=== PATIENT | male | born 1960 | race African-American/Black ===

== ENCOUNTER 2016-06-16 10:39 | Emergency (ER) | payer OTHER ==
[2016-06-16 10:46] VITALS: BP 145/91; PULSE 89; TEMP 97.9; BMI 37.7
--- NOTE | 2016-06-16 11:22 | PDOC ---
History of Present Illness - General Chief Complaint: Wound Stated Complaint: PD TUBE PROBLEM Time Seen by Provider: 06/16/16 10:57 History Source: Patient Exam Limitations: No Limitations - History of Present Illness Initial Comments: 06/16/16 11:23 55-year-old male presents to the ED for dressing change to his peritoneal dialysis catheter site. Patient states had his catheter placed about 1 month ago and is in the process of being taught how to use it so that he can do it at home. Patient states currently receives hemodialysis through his left AV fistula which yesterday the dialysis nurse dressed the area but the dressing came loose and he is concerned that it might get pulled out. Patient denies any pain at the site, bleeding, redness, or movement of the tube. Patient states unable to use surgical tape since it irritates his skin. Timing/Duration: other Associated Symptoms: reports: denies symptoms Past History - Past Medical History Allergies/Adverse Reactions: Allergies Allergy/AdvReac Type Severity Reaction Status Date / Time No Known Allergies Allergy Verified 06/16/16 10:47 Home Medications: Ambulatory Orders Atorvastatin Ca [Lipitor] 10 mg PO HS 06/16/16 Carvedilol [Coreg -] 30 mg PO DAILY 06/16/16 Cinacalcet HCl [Sensipar] 30 mg PO DAILY 06/16/16 Furosemide [Lasix -] 40 mg PO DAILY 06/16/16 Hydralazine HCl 75 mg PO TID 06/16/16 Losartan Potassium [Cozaar] 25 mg PO DAILY 06/16/16 Sevelamer Carbonate [Renvela] 800 mg PO AC 06/16/16 Cardiac Disorders: Yes (ANGINA) Dialysis: Yes GI Disorders: Yes (GERD) HTN: Yes Hypercholesterolemia: Yes - Family Disease History Family Disease History: Heart Disease: Father, [place]: Mother - Psycho/Social/Smoking Cessation Hx Anxiety: No Suicidal Ideation: No Smoking Status: No Smoking History: Never smoked Number of Cigarettes Smoked Daily: 0 Information on smoking cessation initiated: No Hx Alcohol Use: No Drug/Substance Use Hx: No Substance Use Type: None Hx Substance Use Treatment: No Patient Lives Alone: Yes Lives with/in: lives alone Review of Systems - Review of Systems Able to Perform ROS?: Yes Constitutional: No: Symptoms Reported Respiratory: No: Symptoms reported ABD/GI: No: Symptoms Reported Integumentary: No: Symptoms Reported *Physical Exam - Vital Signs Last Vital Signs Temp Pulse Resp BP Pulse Ox 97.9 F 89 18 145/91 97 06/16/16 10:40 06/16/16 10:40 06/16/16 10:40 06/16/16 10:40 06/16/16 10:40 - Physical Exam General Appearance: Yes: Nourished, Appropriately Dressed. No: Apparent Distress Gastrointestinal/Abdominal: positive: Soft. negative: Tenderness Integumentary: positive: Normal Color, Warm, Moist, Other (dialysis catheter secured with DRESSING. Distal portion of tube did not secured and tip not covered ) Neurologic: positive: Motor Strength 5/5 (ambulatory) Medical Decision Making - Medical Decision Making 06/16/16 11:35 Patient here requesting patient here requesting an additional dressing to be placed to his peritoneal dialysis catheter. Tip was cleansed with alcohol and covered with a sterile 2 x 2. distal aspect of the catheter tubing secured using Tegaderm. Patient given additional Tegaderm. Patient has dialysis tomorrow to his left AV fistula *DC/Admit/Observation/Transfer Diagnosis at time of Disposition: Dressing change - Discharge Dispostion Disposition: HOME Condition at time of disposition: Good - Patient Instructions Printed Discharge Instructions: Peritoneal Dialysis Additional Instructions: Keep catheter secured and covered as demonstrated and performed in the ER. Observe for infection. You have also been given an additional Tegaderm as needed for dressing changes.
== END 2016-06-16 11:37 | disposition home or self-care (01) ==
LOC: JER 10:39
DX: Z48.01 Encounter for change or removal of surgical wound dressing (principal); I13.11 Hypertensive heart and chronic kidney disease without heart failure, with stage 5 chronic kidney disease, or end stage renal disease; N18.6 End stage renal disease; N17.8 Other acute kidney failure; Z99.2 Dependence on renal dialysis
CPT/HCPCS: 99281-25

== ENCOUNTER 2023-06-26 19:27 | Observation (INO) | payer OTHER ==
[2023-06-26] MEDS ORDERED: MAG HYDROX/AL HYDROX/SIMETH 30 ML UNIT-DOSE CUP ONE (21:23)
[2023-06-26] MEDS ORDERED: ACETAMINOPHEN INJECTION 100 ML IVPB ONE (21:23)
[2023-06-26] MEDS: MAG HYDROX/AL HYDROX/SIMETH 30 ML UNIT-DOSE CUP PO ONE (22:04)
[2023-06-26] MEDS: ACETAMINOPHEN 1000 MG/100 ML BAG IVPB ONE (22:04)
[2023-06-26 23:33] LABS: BASO % 0.5 % (0-2.0); EOS % 2.8 % (0-4.5); HEMATOCRIT 40.8 % (35.4-49); LYMPH % 16.2 % (8-40); MCHC 31.9 g/dl (32.0-35.9); MEAN CELL VOLUME 94.2 fl (80-96); MEAN PLT VOLUME 7.9 fl (7.5-11.1); MONO % 9.8 % (3.8-10.2); NEUT % 70.7 % (42.8-82.8); PLATELET COUNT 236 10^3/uL (134-434); RBC 4.33 M/mm3 (4.00-5.60); RDW 15.4 % (11.9-15.9); WHITE BLOOD COUNT 6.5 K/mm3 (4.0-10.0)
[2023-06-26 23:38] LABS: INR 1.09 (0.83-1.09); PROTHROMBIN TIME (PATIENT) 12.6 SEC (9.7-13.0)
[2023-06-26 23:40] LABS: ACTIVATED PTT 32.6 SECONDS (25.2-36.5)
[2023-06-26 23:50] LABS: POTASSIUM 4.2 mmol/L (3.5-5.1)
[2023-06-26 23:53] LABS: CALCIUM 9.7 mg/dL (8.5-10.1)
[2023-06-26 23:54] LABS: ALBUMIN 4.2 g/dl (3.4-5.0); BLOOD UREA NITROGEN 25.3 mg/dL (7-18); MAGNESIUM 2.5 mg/dL (1.8-2.4)
[2023-06-26 23:57] LABS: CREATININE 6.5 mg/dL (0.55-1.3); TOT PROT 9.9 g/dl (6.4-8.2)
[2023-06-26 23:59] LABS: BILIRUBIN,TOTAL 0.5 mg/dL (0.2-1)
[2023-06-27 00:39] LABS: ERYTHROCYTE SEDIMENTATION RATE 64 mm/hr (0-20)
[2023-06-27] MEDS ORDERED: ACETAMINOPHEN 1000 MG/100 ML BAG IVPB PRN (02:36)
[2023-06-27] MEDS ORDERED: traMADol HCL 50 MG TABLET PO PRN ×2 (02:37→20:27)
[2023-06-27] MEDS ORDERED: ASPIRIN 325 MG TABLET ONE (03:13)
[2023-06-27] MEDS ORDERED: ASPIRIN 81 MG CHEWABLE TABLETS ONE (03:14)
[2023-06-27] MEDS: ASPIRIN 81 MG CHEWABLE TABLETS PO ONE (03:21)
[2023-06-27] MEDS ORDERED: SEVELAMER CARBONATE 800 MG TAB (FP) PO SCH (05:30)
[2023-06-27 08:17] LABS: POTASSIUM 3.6 mmol/L (3.5-5.1)
[2023-06-27 08:20] LABS: ALBUMIN 3.6 g/dl (3.4-5.0); BLOOD UREA NITROGEN 31.6 mg/dL (7-18)
[2023-06-27 08:22] LABS: CALCIUM 8.8 mg/dL (8.5-10.1); PHOSPHOROUS 2.6 mg/dL (2.5-4.9)
[2023-06-27 08:24] LABS: CREATININE 7.2 mg/dL (0.55-1.3)
[2023-06-27 08:25] LABS: BILIRUBIN,TOTAL 0.5 mg/dL (0.2-1); TOT PROT 8.4 g/dl (6.4-8.2)
[2023-06-27 08:38] LABS: BASO % 0.6 % (0-2.0); EOS % 3.1 % (0-4.5); HEMATOCRIT 35.2 % (35.4-49); HEMOGLOBIN 11.5 GM/dL (11.7-16.9); LYMPH % 18.4 % (8-40); MCH 30.6 pg (25.7-33.7); MCHC 32.6 g/dl (32.0-35.9); MEAN CELL VOLUME 93.8 fl (80-96); MEAN PLT VOLUME 7.9 fl (7.5-11.1); MONO % 12.2 % (3.8-10.2); NEUT % 65.7 % (42.8-82.8); PLATELET COUNT 214 10^3/uL (134-434); RBC 3.75 M/mm3 (4.00-5.60); RDW 14.9 % (11.9-15.9); WHITE BLOOD COUNT 6.9 K/mm3 (4.0-10.0)
[2023-06-27] MEDS: TAMSULOSIN HCL 0.4 MG CAP PO SCH (09:00)
[2023-06-27] MEDS: SEVELAMER CARBONATE 800 MG TAB (FP) PO SCH (09:38)
[2023-06-27] MEDS ORDERED: HEPARIN NA (PORCINE) 5,000 UNITS/ML 1ML VIAL SQ SCH (10:00)
[2023-06-27] MEDS ORDERED: ASPIRIN 81 MG CHEWABLE TABLETS PO SCH (10:00)
[2023-06-27] MEDS: CARVEDILOL 25 MG TABLET (FP) PO SCH ×2 (11:00→21:33)
[2023-06-27] MEDS: FINASTERIDE 5 MG TABLET (FP) PO SCH (11:00)
[2023-06-27] MEDS: ACETAMINOPHEN 1000 MG/100 ML BAG IVPB PRN (11:07)
[2023-06-27] MEDS: APIXABAN 2.5 MG TABLET PO SCH ×2 (11:08→21:32)
[2023-06-27] MEDS: FAMOTIDINE 10 MG TABLET PO SCH (11:08)
[2023-06-27] MEDS: BACITRACIN ZINC 15 GM TUBE TOPICAL OINTMENT TP ONE (11:13)
[2023-06-27] MEDS ORDERED: SODIUM CHLORIDE 250 ML IV PRN (13:39)
[2023-06-27] MEDS: CINACALCET HCL 30 MG TAB (FP) PO SCH (18:38)
[2023-06-27] MEDS: ACETAMINOPHEN 325 MG TABLET (FP) PO PRN (21:33)
[2023-06-27] MEDS: ATORVASTATIN CA 40 MG TABLET (FP) PO SCH (21:33)
[2023-06-27] MEDS ORDERED: ATORVASTATIN CA 40 MG TABLET (FP) PO SCH (22:00)
[2023-06-28] MEDS ORDERED: ASPIRIN 81 MG CHEWABLE TABLETS PO SCH (10:00)
[2023-06-28] MEDS: SEVELAMER CARBONATE 800 MG TAB (FP) PO SCH (10:15)
[2023-06-28] MEDS: TAMSULOSIN HCL 0.4 MG CAP PO SCH (10:16)
[2023-06-28] MEDS: CINACALCET HCL 30 MG TAB (FP) PO SCH (10:16)
[2023-06-28] MEDS: ASPIRIN 81 MG CHEWABLE TABLETS PO SCH (10:16)
[2023-06-28] MEDS: FINASTERIDE 5 MG TABLET (FP) PO SCH (10:16)
[2023-06-28 15:40] LABS: POTASSIUM 3.2 mmol/L (3.5-5.1)
[2023-06-28 16:09] LABS: ALBUMIN 3.1 g/dl (3.4-5.0); CALCIUM 8.4 mg/dL (8.5-10.1)
[2023-06-28 16:10] LABS: BLOOD UREA NITROGEN 27.5 mg/dL (7-18)
[2023-06-28 16:14] LABS: CREATININE 5.9 mg/dL (0.55-1.3)
[2023-06-28 16:15] LABS: BILIRUBIN,TOTAL 0.4 mg/dL (0.2-1); TOT PROT 7.5 g/dl (6.4-8.2)
[2023-06-28 23:56] VITALS: RESP 18
[2023-06-29 11:44] VITALS: BP 141/82; PULSE 88; TEMP 98.4
== END 2023-06-29 14:43 | disposition home or self-care (01) ==
LOC: JER 19:27 → JERBED 06-27 00:04 → J4W 06-27 05:09 → J5S 06-27 20:15
PROVIDERS: ADMIT Internal Medicine; ATTEND Internal Medicine
PROC: 3E033NZ Introduction of Analgesics, Hypnotics, Sedatives into Peripheral Vein, Percutaneous Approach (ICD-10-PCS; principal; 2023-06-27)
DX: S82.152A Displaced fracture of left tibial tuberosity, initial encounter for closed fracture (principal); I48.92 Unspecified atrial flutter; R26.2 Difficulty in walking, not elsewhere classified; M25.562 Pain in left knee; W18.39XA Other fall on same level, initial encounter; Y93.89 Activity, other specified; Y92.89 Other specified places as the place of occurrence of the external cause; N18.6 End stage renal disease; Z99.2 Dependence on renal dialysis; E66.9 Obesity, unspecified; N40.0 Benign prostatic hyperplasia without lower urinary tract symptoms; R07.89 Other chest pain
CPT/HCPCS: 36415; 71046-TC-FY; 72170-TC-FY; 73552-TC-LT-FY; 73562-TC-LT-FY; 73590-TC-LT-FY; 73700-TC-RT; 80053; 83735; 84100; 84484; 85025; 85610; 85651; 85730; 86704; 86803; 87340; 87517; 93005; 93010; 93306-TC; 93971-TC; 96374; 96376; 97116-GP; 97161-GP; 99285-25; G0378; J0131

== ENCOUNTER 2023-11-20 04:07 | Observation (INO) | payer OTHER ==
[2023-11-20 06:08] LABS: INR 1.15 (0.83-1.09); PROTHROMBIN TIME (PATIENT) 13.2 SEC (9.7-13.0)
[2023-11-20 06:11] LABS: ACTIVATED PTT 34.3 SECONDS (25.2-36.5)
[2023-11-20 06:17] LABS: CHLORIDE 106 mmol/L (98-107); POTASSIUM 4.3 mmol/L (3.5-5.1); SODIUM 140 mmol/L (136-145)
[2023-11-20 06:18] LABS: BASO % 1.3 % (0-2.0); EOS % 3.7 % (0-4.5); HEMATOCRIT 33.3 % (35.4-49); LYMPH % 26.5 % (8-40); MCH 30.9 pg (25.7-33.7); MCHC 33.1 g/dl (32.0-35.9); MEAN CELL VOLUME 93.3 fl (80-96); MEAN PLT VOLUME 9.7 fl (7.5-11.1); MONO % 11.6 % (3.8-10.2); NEUT % 56.9 % (42.8-82.8); PLATELET COUNT 156 10^3/uL (134-434); RBC 3.57 M/mm3 (4.00-5.60); RDW 14.9 % (11.9-15.9); WHITE BLOOD COUNT 4.8 K/mm3 (4.0-10.0)
[2023-11-20 06:19] LABS: CALCIUM 9.2 mg/dL (8.5-10.1)
[2023-11-20 06:20] LABS: ALBUMIN 3.5 g/dl (3.4-5.0); ANION GAP 13 mmol/L (4-13); BLOOD UREA NITROGEN 66.9 mg/dL (7-18); CO2 21 mmol/L (21-32); GLUCOSE,RANDOM 87 mg/dL (74-106)
[2023-11-20 06:23] LABS: PHOSPHOROUS 5.1 mg/dL (2.5-4.9); SGOT/AST 13 U/L (15-37); SGPT/ALT 10 U/L (13-61)
[2023-11-20 06:24] LABS: BILIRUBIN,TOTAL 0.4 mg/dL (0.2-1)
[2023-11-20 06:25] LABS: TOT PROT 7.6 g/dl (6.4-8.2)
[2023-11-20 06:26] LABS: ALK PHOS 239 U/L (45-117)
[2023-11-20 07:14] LABS: CREATININE 10.3 mg/dL (0.55-1.3)
[2023-11-20 07:16] LABS: HIV INTERPRETATION NEGATIVE (NEGATIVE)
[2023-11-20] MEDS ORDERED: SODIUM CHLORIDE 250 ML IV PRN (08:19)
[2023-11-20 11:17] VITALS: BMI 31.7
[2023-11-20] MEDS: LIDOCAINE 5% TOPICAL PATCH TP SCH (12:51)
[2023-11-20] MEDS: ACETAMINOPHEN 325 MG TABLET (FP) PO ONE (15:15)
[2023-11-20] MEDS: HEPARIN NA (PORCINE) 5,000 UNITS/ML 1ML VIAL SQ SCH (16:49)
[2023-11-20] MEDS: AMITRIPTYLINE HCL 10 MG TABLET PO SCH (17:24)
[2023-11-20] MEDS: SEVELAMER CARBONATE 800 MG TAB (FP) PO SCH (17:24)
[2023-11-20] MEDS: HYDROCORTISONE 2.5% TOPICAL CREAM 30 GM TUBE TP SCH (17:24)
[2023-11-20] MEDS: CARVEDILOL 25 MG TABLET (FP) PO SCH (21:17)
[2023-11-20] MEDS: APIXABAN 2.5 MG TABLET PO SCH (21:18)
[2023-11-20] MEDS: LIDOCAINE PATCH REMOVAL MC SCH (21:18)
[2023-11-20] MEDS: ATORVASTATIN CA 10 MG TABLET (FP) PO SCH (21:18)
[2023-11-21] MEDS: LIDOCAINE 4% PATCH TP ONE (01:32)
[2023-11-21] MEDS: ACETAMINOPHEN 1000 MG/100 ML BAG IVPB ONE (02:20)
[2023-11-21] MEDS: TAMSULOSIN HCL 0.4 MG CAP PO SCH (07:57)
[2023-11-21 08:10] LABS: CHLORIDE 103 mmol/L (98-107); POTASSIUM 3.6 mmol/L (3.5-5.1); SODIUM 141 mmol/L (136-145)
[2023-11-21 08:20] LABS: ALBUMIN 3.1 g/dl (3.4-5.0); ANION GAP 11 mmol/L (4-13); BLOOD UREA NITROGEN 47.6 mg/dL (7-18); CO2 27 mmol/L (21-32); GLUCOSE,RANDOM 134 mg/dL (74-106); MAGNESIUM 1.9 mg/dL (1.8-2.4)
[2023-11-21 08:22] LABS: SGPT/ALT 12 U/L (13-61)
[2023-11-21 08:23] LABS: PHOSPHOROUS 4.3 mg/dL (2.5-4.9); SGOT/AST 11 U/L (15-37)
[2023-11-21 08:24] LABS: BILIRUBIN,TOTAL 0.7 mg/dL (0.2-1); TOT PROT 6.6 g/dl (6.4-8.2)
[2023-11-21 08:25] LABS: ALK PHOS 213 U/L (45-117)
[2023-11-21 08:39] LABS: CREATININE 7.9 mg/dL (0.55-1.3)
[2023-11-21 08:57] LABS: BASO % 1.2 % (0-2.0); EOS % 4.6 % (0-4.5); HEMOGLOBIN 10.4 GM/dL (11.7-16.9); LYMPH % 22.8 % (8-40); MCH 30.8 pg (25.7-33.7); MCHC 33.4 g/dl (32.0-35.9); MEAN CELL VOLUME 92.1 fl (80-96); MEAN PLT VOLUME 9.9 fl (7.5-11.1); NEUT % 58.4 % (42.8-82.8); PLATELET COUNT 136 10^3/uL (134-434); RBC 3.36 M/mm3 (4.00-5.60)
[2023-11-21] MEDS: CALCITRIOL 0.25 MCG CAPSULE (FP) PO SCH (09:04)
[2023-11-21] MEDS: FERROUS SO4 325 MG TABLET (FP) PO SCH (09:04)
[2023-11-21] MEDS: FAMOTIDINE 10 MG TABLET PO SCH (09:04)
[2023-11-21] MEDS: CYANOCOBALAMIN 1,000 MCG TABLET (FP) PO SCH (09:05)
[2023-11-21] MEDS: ASPIRIN 81 MG CHEWABLE TABLETS PO SCH (09:12)
[2023-11-21] MEDS ORDERED: FAMOTIDINE 10 MG TABLET PO SCH (10:00)
[2023-11-21] MEDS: LIDOCAINE PATCH REMOVAL MC ONE (14:22)
[2023-11-22 11:23] VITALS: RESP 18; TEMP 97.7
[2023-11-22] MEDS ORDERED: SODIUM CHLORIDE 250 ML IV PRN (11:27)
[2023-11-22 11:37] LABS: HEMATOCRIT 30.3 % (35.4-49); HEMOGLOBIN 10.3 GM/dL (11.7-16.9); MCH 31.3 pg (25.7-33.7); MEAN PLT VOLUME 9.3 fl (7.5-11.1); PLATELET COUNT 143 10^3/uL (134-434); RBC 3.29 M/mm3 (4.00-5.60); RDW 15.2 % (11.9-15.9); WHITE BLOOD COUNT 4.3 K/mm3 (4.0-10.0)
[2023-11-22 11:46] LABS: CHLORIDE 103 mmol/L (98-107); POTASSIUM 3.7 mmol/L (3.5-5.1); SODIUM 139 mmol/L (136-145)
[2023-11-22 11:53] LABS: BLOOD UREA NITROGEN 61.9 mg/dL (7-18); CALCIUM 8.6 mg/dL (8.5-10.1)
[2023-11-22 11:54] LABS: ANION GAP 11 mmol/L (4-13); CO2 25 mmol/L (21-32); GLUCOSE,RANDOM 110 mg/dL (74-106)
[2023-11-22 11:56] LABS: SGOT/AST 10 U/L (15-37); SGPT/ALT 12 U/L (13-61)
[2023-11-22 11:58] LABS: CREATININE 9.7 mg/dL (0.55-1.3); TOT PROT 6.8 g/dl (6.4-8.2)
[2023-11-22 11:59] LABS: BILIRUBIN,TOTAL 0.6 mg/dL (0.2-1)
[2023-11-22 12:00] LABS: ALK PHOS 222 U/L (45-117)
[2023-11-22] MEDS: EPOETIN ALFA-EPBX 4,000 UNIT/ML VIAL SQ ONE (13:57)
[2023-11-22 14:35] VITALS: BP 122/62; PULSE 85
== END 2023-11-22 18:36 | disposition home or self-care (01) ==
LOC: JER 04:07 → JERBED 08:36 → J4W 10:10
PROVIDERS: ADMIT Internal Medicine; ATTEND Internal Medicine
PROC: 3E033NZ Introduction of Analgesics, Hypnotics, Sedatives into Peripheral Vein, Percutaneous Approach (ICD-10-PCS; principal; 2023-11-20)
PROC: 3E023GC Introduction of Other Therapeutic Substance into Muscle, Percutaneous Approach (ICD-10-PCS; 2023-11-20)
DX: I12.0 Hypertensive chronic kidney disease with stage 5 chronic kidney disease or end stage renal disease (principal); I24.89 Other forms of acute ischemic heart disease; I10 Essential (primary) hypertension; I50.23 Acute on chronic systolic (congestive) heart failure; Z99.2 Dependence on renal dialysis; K21.9 Gastro-esophageal reflux disease without esophagitis; I48.92 Unspecified atrial flutter; Z79.01 Long term (current) use of anticoagulants
CPT/HCPCS: 0241U-QW; 36415; 71045-TC-FY; 80053; 83735; 84100; 84484; 85025; 85027; 85610; 85730; 87340; 87389; 93005; 93010; 93306-TC; 94660; 96372; 96374; 97116-GP; 97161-GP; 99285-25; G0378; J0131; Q5106

== ENCOUNTER 2024-05-21 17:31 | Observation (INO) | payer OTHER ==
[2024-05-21 19:03] LABS: BASO % 1.1 % (0-2.0); EOS % 7.8 % (0-4.5); HEMATOCRIT 35.3 % (35.4-49); HEMOGLOBIN 11.1 GM/dL (11.7-16.9); LYMPH % 22.7 % (8-40); MCHC 31.6 g/dl (32.0-35.9); MEAN CELL VOLUME 94.9 fl (80-96); MEAN PLT VOLUME 9.1 fl (7.5-11.1); MONO % 12.6 % (3.8-10.2); NEUT % 55.8 % (42.8-82.8); PLATELET COUNT 206 10^3/uL (134-434); RBC 3.72 M/mm3 (4.00-5.60); RDW 15.5 % (11.9-15.9); WHITE BLOOD COUNT 3.9 K/mm3 (4.0-10.0)
[2024-05-21] MEDS ORDERED: MAG HYDROX/AL HYDROX/SIMETH 30 ML UNIT-DOSE CUP ONE (19:04)
[2024-05-21] MEDS: MAG HYDROX/AL HYDROX/SIMETH 30 ML UNIT-DOSE CUP PO ONE (19:05)
[2024-05-21 19:10] LABS: INR 1.17 (0.83-1.09); PROTHROMBIN TIME (PATIENT) 12.7 SEC (9.7-13.0)
[2024-05-21 19:28] LABS: CHLORIDE 102 mmol/L (98-107); SODIUM 135 mmol/L (136-145)
[2024-05-21 19:30] LABS: CALCIUM 7.9 mg/dL (8.5-10.1)
[2024-05-21 19:31] LABS: ALBUMIN 3.3 g/dl (3.4-5.0); BLOOD UREA NITROGEN 60.4 mg/dL (7-18); CO2 25 mmol/L (21-32); GLUCOSE,RANDOM 107 mg/dL (74-106)
[2024-05-21 19:34] LABS: PHOSPHOROUS 4.5 mg/dL (2.5-4.9); SGOT/AST 19 U/L (15-37); SGPT/ALT 12 U/L (13-61)
[2024-05-21 19:35] LABS: BILIRUBIN,TOTAL 0.5 mg/dL (0.2-1); TOT PROT 7.8 g/dl (6.4-8.2)
[2024-05-21 19:37] LABS: ALK PHOS 164 U/L (45-117)
[2024-05-21 19:42] LABS: ANION GAP 8 mmol/L (4-13); CREATININE 8.4 mg/dL (0.55-1.3); POTASSIUM 6.5 mmol/L (3.5-5.1)
[2024-05-21 20:02] LABS: N-TERMINAL BNP 15118.4 pg/ml (5-125)
[2024-05-21] MEDS ORDERED: SODIUM ZIRCONIUM CYCLOSILICATE (LOKELMA) 10 GM PACKET ONE (22:35)
[2024-05-21] MEDS ORDERED: CALCIUM GLUCONATE 10% - 1,000 MG/10 ML VIAL ONE (22:35)
[2024-05-21] MEDS ORDERED: ALBUTEROL SO4 0.083% IH SOL 2.5 MG/3 ML VIAL.NEB. NEB ONE (22:35)
[2024-05-21] MEDS: SODIUM ZIRCONIUM CYCLOSILICATE (LOKELMA) 5 GM PACKET PO ONE (22:44)
[2024-05-21] MEDS: CALCIUM GLUCONATE 10% - 1,000 MG/10 ML VIAL IVPB ONE (22:44)
[2024-05-21] MEDS: ALBUTEROL SO4 0.5 % INH SOLN 2.5 MG/0.5 ML VIAL.NEB. NEB ONE (22:44)
[2024-05-21] MEDS ORDERED: INSULIN REGULAR HUMAN 100 UNITS/ML *VIAL ONE (23:17)
[2024-05-21] MEDS ORDERED: DEXTROSE 50%-WATER 25 GM/50 ML DISP.SYRIN ONE (23:17)
[2024-05-21] MEDS: INSULIN REGULAR HUMAN 100 UNITS/ML *VIAL IVPUSH ONE (23:25)
[2024-05-21] MEDS: DEXTROSE 50%-WATER 25 GM/50 ML DISP.SYRIN IVPUSH ONE (23:25)
[2024-05-22 06:10] LABS: HEMATOCRIT 34.7 % (35.4-49); MCH 30.4 pg (25.7-33.7); MCHC 31.8 g/dl (32.0-35.9); MEAN CELL VOLUME 95.5 fl (80-96); MEAN PLT VOLUME 8.7 fl (7.5-11.1); PLATELET COUNT 186 10^3/uL (134-434); RBC 3.63 M/mm3 (4.00-5.60); RDW 15.4 % (11.9-15.9); WHITE BLOOD COUNT 4.2 K/mm3 (4.0-10.0)
[2024-05-22 06:25] LABS: CHLORIDE 102 mmol/L (98-107); SODIUM 136 mmol/L (136-145)
[2024-05-22 06:27] LABS: ALBUMIN 3.4 g/dl (3.4-5.0); BLOOD UREA NITROGEN 67.1 mg/dL (7-18); CALCIUM 8.1 mg/dL (8.5-10.1); CO2 27 mmol/L (21-32); GLUCOSE,RANDOM 123 mg/dL (74-106)
[2024-05-22] MEDS: HEPARIN NA (PORCINE) 5,000 UNITS/ML 1ML VIAL SQ SCH (06:28)
[2024-05-22 06:30] LABS: SGOT/AST 9 U/L (15-37); SGPT/ALT 13 U/L (13-61)
[2024-05-22 06:32] LABS: BILIRUBIN,TOTAL 0.4 mg/dL (0.2-1); TOT PROT 7.7 g/dl (6.4-8.2)
[2024-05-22 06:33] LABS: ALK PHOS 166 U/L (45-117)
[2024-05-22 06:34] LABS: ANION GAP 7 mmol/L (4-13); CREATININE 9.1 mg/dL (0.55-1.3); POTASSIUM 6.3 mmol/L (3.5-5.1)
[2024-05-22] MEDS ORDERED: SODIUM CHLORIDE 250 ML IV PRN (07:02)
[2024-05-22] MEDS ORDERED: SODIUM ZIRCONIUM CYCLOSILICATE (LOKELMA) 10 GM PACKET ONE (12:44)
[2024-05-22] MEDS ORDERED: ASPIRIN COATED 81 MG TABLET.EC ONE (12:44)
[2024-05-22] MEDS ORDERED: CARVEDILOL 25 MG TABLET (FP) ONE ×2 (12:44→22:11)
[2024-05-22] MEDS ORDERED: FERROUS SO4 325 MG TABLET (FP) ONE (12:44)
[2024-05-22] MEDS ORDERED: TAMSULOSIN HCL 0.4 MG CAP ONE (12:44)
[2024-05-22] MEDS: SODIUM ZIRCONIUM CYCLOSILICATE (LOKELMA) 5 GM PACKET PO SCH (13:23)
[2024-05-22] MEDS: TAMSULOSIN HCL 0.4 MG CAP PO SCH (13:23)
[2024-05-22] MEDS: CARVEDILOL 25 MG TABLET (FP) PO SCH (13:23)
[2024-05-22] MEDS: FERROUS SO4 325 MG TABLET (FP) PO SCH (13:23)
[2024-05-22] MEDS: ASPIRIN COATED 81 MG TABLET.EC PO SCH (13:23)
[2024-05-22] MEDS: CHOLECALCIFEROL (VIT D3) 5000 UNITS (125 MCG) CAP PO SCH (13:27)
[2024-05-22] MEDS: hydrOXYzine HCL 10 MG/5 ML UNIT DOSE CUPS PO SCH (13:27)
[2024-05-22] MEDS: CYANOCOBALAMIN 1,000 MCG TABLET (FP) PO SCH (13:27)
[2024-05-22] MEDS ORDERED: HEPARIN NA (PORCINE) 5,000 UNITS/ML 1ML VIAL ONE (15:17)
[2024-05-22] MEDS: ACETAMINOPHEN 325 MG TABLET (FP) PO PRN (20:34)
[2024-05-22] MEDS ORDERED: ALPRAZolam 0.25 MG TABLET ONE (21:14)
[2024-05-22] MEDS ORDERED: APIXABAN 2.5 MG TABLET ONE (22:11)
[2024-05-22] MEDS ORDERED: ATORVASTATIN CA 10 MG TABLET (FP) ONE (22:11)
[2024-05-22] MEDS: ATORVASTATIN CA 10 MG TABLET (FP) PO SCH (22:14)
[2024-05-22] MEDS: APIXABAN 2.5 MG TABLET PO SCH (22:14)
[2024-05-23 01:52] VITALS: BMI 33.5
[2024-05-23 01:54] LABS: ALBUMIN 3.2 g/dl (3.4-5.0); BILIRUBIN,TOTAL 0.4 mg/dL (0.2-1); BLOOD UREA NITROGEN 43.4 mg/dL (7-18); CALCIUM 8.6 mg/dL (8.5-10.1); POTASSIUM 5.3 mmol/L (3.5-5.1); TOT PROT 7.4 g/dl (6.4-8.2)
[2024-05-23] MEDS: guaiFENesin 200 MG/10 ML 10 ML UNIT-DOSE CUPS PO PRN (02:49)
[2024-05-23] MEDS: SODIUM ZIRCONIUM CYCLOSILICATE (LOKELMA) 5 GM PACKET PO SCH (11:03)
[2024-05-23 13:35] VITALS: RESP 18
[2024-05-23 13:53] VITALS: BP 149/78; PULSE 66; TEMP 98
[2024-05-23] MEDS: amLODIPine BESYLATE 5 MG TABLET (FP) PO ONE (14:13)
[2024-05-23] MEDS ORDERED: SODIUM CHLORIDE 250 ML IV PRN (14:46)
[2024-05-23] MEDS ORDERED: SACUBITRIL/VALSARTAN 24 MG-26 MG TABLET PO SCH (22:00)
== END 2024-05-23 17:15 | disposition home or self-care (01) ==
LOC: JER 17:31 → JERBED 22:24 → J4W 05-23 01:34
PROVIDERS: ADMIT Student in an Organized Health Care Education/Training Program; ATTEND Nurse Practitioner Family
PROC: 3E0F7GC Introduction of Other Therapeutic Substance into Respiratory Tract, Via Natural or Artificial Opening (ICD-10-PCS; principal; 2024-05-21)
PROC: 3E0337Z Introduction of Electrolytic and Water Balance Substance into Peripheral Vein, Percutaneous Approach (ICD-10-PCS; 2024-05-21)
PROC: 3E033GC Introduction of Other Therapeutic Substance into Peripheral Vein, Percutaneous Approach (ICD-10-PCS; 2024-05-21)
PROC: 3E033VG Introduction of Insulin into Peripheral Vein, Percutaneous Approach (ICD-10-PCS; 2024-05-21)
DX: I50.23 Acute on chronic systolic (congestive) heart failure (principal); I48.92 Unspecified atrial flutter; I48.0 Paroxysmal atrial fibrillation; E87.5 Hyperkalemia; I12.0 Hypertensive chronic kidney disease with stage 5 chronic kidney disease or end stage renal disease; N18.6 End stage renal disease; Z99.2 Dependence on renal dialysis; D50.9 Iron deficiency anemia, unspecified; Z29.9 Encounter for prophylactic measures, unspecified
CPT/HCPCS: 0241U-QW; 36415; 71045-TC-FY; 80053; 83735; 83880; 84100; 84132; 84484; 85025; 85027; 85610; 86850; 86900; 86901; 93005; 93010; 93306-TC; 94640; 96361; 96374; 96375; 99285-25; G0378; J1644